=== PATIENT | male | born 1950 | race Caucasian/White ===

== ENCOUNTER 2020-05-15 08:20 | Outpatient (REF) | payer MEDICARE, SELFPAY | END 2020-05-15 08:21 | disposition home or self-care (01) | LOC: HO.MANLDS 08:20 | PROVIDERS: PCP Internal Medicine; Visit Provider Internal Medicine | DX: Z12.5 Encounter for screening for malignant neoplasm of prostate (principal); N40.1 Benign prostatic hyperplasia with lower urinary tract symptoms | CPT/HCPCS: 36415; 84153 ==

== ENCOUNTER 2021-05-19 11:17 | Outpatient (REF) | payer MEDICARE, SELFPAY ==
[2021-05-19 13:15] LABS: Prostate Specific Antigen 2.69 ng/mL (<0.05-4.0)
== END 2021-05-19 11:18 | disposition home or self-care (01) ==
LOC: HO.MANLDS 11:17
PROVIDERS: PCP Internal Medicine; Visit Provider Internal Medicine
DX: Z12.5 Encounter for screening for malignant neoplasm of prostate (principal)
CPT/HCPCS: 36415; 84153

== ENCOUNTER 2021-11-03 10:57 | Outpatient (REF) | payer MEDICARE, SELFPAY | END 2021-11-03 10:58 | disposition home or self-care (01) | LOC: HO.LNP 10:57 | PROVIDERS: Visit Provider Internal Medicine | DX: R31.9 Hematuria, unspecified (principal) | CPT/HCPCS: 87086; 87088; 87186 ==

== ENCOUNTER 2022-06-14 07:51 | Outpatient (REF) | payer MEDICARE, SELFPAY ==
[2022-06-14 11:31] LABS: MANUAL DIFF FLAG NO
[2022-06-14 11:51] LABS: Basophils Absolute Auto 0.1 X10*3/uL (0.0-0.2); Basophils Percent Auto 1.4 % (0-2); Eosinophils Absolute Auto 0.3 X10*3/uL (0.0-0.4); Eosinophils Percent Auto 5.8 % (0-4); Hematocrit 43.5 % (42.0-52.0); Hemoglobin 14.2 g/dl (14.0-18.0); Imm Gran Abs Auto 0.02 X10*3/uL (0.00-0.03); Imm Gran Pct Auto 0.4 % (0.0-0.4); Lymphocytes Percent Auto 20.4 % (20-40); Mean Corpuscular HGB Conc 32.6 g/dl (31.0-36.0); Mean Corpuscular Hemoglobin 30.7 pg (27.0-33.0); Mean Corpuscular Volume 94.2 fL (80.0-98.0); Mean Platelet Volume 9.9 fL (9.4-12.4); Monocytes Absolute Auto 0.6 X10*3/uL (0.1-1.2); Monocytes Percent Auto 12.8 % (2-11); Neutrophils Percent Auto 59.2 % (45-73); Platelet Count 347 X10*3/uL (160-400); Red Blood Count 4.62 X10*6/uL (4.60-5.80); Red Cell Distribution Width 14.1 % (11.0-16.0)
[2022-06-14 13:44] LABS: Alanine Aminotransferase 14 U/L (0-40); Alkaline Phosphatase 87 U/L (39-117); Anion Gap 13 (12-20); Aspartate Amino Transferase 17 U/L (5-37); Bilirubin Total 0.7 mg/dL (0.0-1.0); Blood Urea Nitrogen 11 mg/dL (9-16); Calcium 9.1 mg/dL (8.4-10.2); Carbon Dioxide 29 mmol/L (22-29); Chloride 104 mmol/L (96-108); Cholesterol 173 mg/dL; Estimated Glomerular Filt Rate > 60; Glucose Fasting 85 mg/dL (60-99); HDL Cholesterol 101 mg/dL; LDL Cholesterol Calculated 60 mg/dl; Potassium 4.6 mmol/L (3.3-5.1); Sodium 141 mmol/L (135-145); Total Protein 6.7 g/dL (6.5-8.0); Triglycerides 61 mg/dL
[2022-06-14 14:01] LABS: Prostate Specific Antigen 2.11 ng/mL (<0.05-4.0)
== END 2022-06-14 07:52 | disposition home or self-care (01) ==
LOC: HO.MANLDS 07:51
PROVIDERS: Visit Provider Physician Assistant
DX: I10 Essential (primary) hypertension (principal); Z12.5 Encounter for screening for malignant neoplasm of prostate
CPT/HCPCS: 36415; 80053; 80061; 84153; 85025

== ENCOUNTER 2024-08-06 07:35 | Outpatient (REF) | payer MEDICARE, SELFPAY ==
--- OUTSIDE RECORDS SUMMARY | 2024-08-06 07:40 | XMS_ITS | Data Portability ---
Author Organization [place] [facility] [employer] [facility], [facility] Address [address] [place] [id number] Assessment No assessment recorded. Plan of Treatment Reminders Order Date Submit Date Provider Last Modified By Organization Details Last Modified Time Details Appointments ULTRASOUN D 30 2025 10:30A M GP US TECH 2 Not available Not available Not available ULTRASOUN D FU 2025 11:00A M HELEN Burnett Not available Not available Not available Lab urinalysi s, dipstick, auto 2024 025 [email or web address] o1 [facility] [place], [address], [place], [address], 05/28/2024 13:04:25 Referral None recorded. Procedures bladder scan (PROC) 2024 025 [email or web address] o1 [facility] [place], [address], [place], [address], 05/28/2024 13:04:25 Surgeries None recorded. Imaging None recorded. Medication Orders None recorded. Patient TargetsNo targets recorded. Patient Instructions Encounter Date Encounter Id Patient Instructions Last Modified By Organization Details Last Modified Time 05/28/2024 [id number] continue tamsulosin daily follow up in one year [email or web address] Not available 05/28/2024 11:05:13 Reason for Referral None Reported. Results Created Date Observation Date Name Description Value Unit Range Abnormal Flag Note LastModifiedBy Organization Detail LastModifiedTime 05/29/1905/28/2024 bladd er scan (PROC ) Urine Volume 417 Not Available [facility] [place] [address], [place], [address], 05/28/2024 10:59:14 05/29/19 25 05/28/2024 urina lysis , dipst ick, auto Leukocytes Negati ve Not Available [facility] [address], [place], [address], 05/28/2024 10:56:40 05/29/19 25 05/28/2024 urina lysis , dipst ick, auto Nitrite negati ve Not Available [facility] [address], [place], [address], 05/28/2024 10:56:40 05/29/19 25 05/28/2024 urina lysis , dipst ick, auto Urobilinogen .2 Not Available [facility] [place] [address], [place], [address], 05/28/2024 10:56:40 05/29/19 25 05/28/2024 urina lysis , dipst ick, auto Protein Negati ve Not Available [facility] [address], [place], [address], 05/28/2024 10:56:40 05/29/19 25 05/28/2024 urina lysis , dipst ick, auto pH 6.5 Not Available [facility] [address], [place], [address], 05/28/2024 10:56:40 05/29/19 25 05/28/2024 urina lysis , dipst ick, auto Blood Negati ve Not Available [facility] [address], [place], [address], 05/28/2024 10:56:40 05/29/19 25 05/28/2024 urina lysis , dipst ick, auto Specific [place] 1.015 Not Available [facility] [address], [place], [address], 05/28/2024 10:56:40 05/29/19 25 05/28/2024 urina lysis , dipst ick, auto Ketone Negati ve Not Available [facility] [address], [place], [address], 05/28/2024 10:56:40 05/29/19 25 05/28/2024 urina lysis , dipst ick, auto Bilirubin Negati ve Not Available [facility] [address], [place], [address], 05/28/2024 10:56:40 05/29/19 25 05/28/2024 urina lysis , dipst ick, auto Glucose Negati ve Not Available [facility] [address], [place], [address], 05/28/2024 10:56:40 Result Notes None recorded. Problems Name Problem SNOMED Code Status Onset Date Resolution Date Notes Provider Name and Address Organization Details Recorded Time Incomplete emptying of urinary bladder 133832199 Active 2024 MARIFER enrique, [employer] 5 11:00:02 Benign prostatic hyperplasia with outflow obstruction 426965423 Active 2024 Hortencia stephen APRN [address] [place], [address], [employer] [facility] 5 17:11:31 Problem Notes None recorded. Medical Equipment None Reported. Medications Name Sig Start Date Stop Date Status Note LastModified by Organization Details LastModified Time cephalexin 500 mg capsule Take 1 capsule (500 mg total) by mouth 3 (three) times a day for 3 days. Please begin to take the day before Urolift procedure 11/27 completed Not Available Not Available Not Available oxybutynin chloride 5 mg tablet Take 1 tablet (5 mg total) by mouth 3 (three) times a day as needed. Please begin to take only after Urolift procedure 01/12 completed Not Available Not Available Not Available nitrofurant oin monohydrate /macrocryst als 100 mg capsule Take 1 capsule (100 mg total) by mouth 2 (two) times a day for 7 days. 11/16 completed Not Available Not Available Not Available Vitals None Recorded Social History None recorded. Functional Status None recorded. Mental Status None recorded. Family History Nothing Reported. Medical History No medical history recorded. Past Encounters Encounter ID Performer Location Encounter Start Date Encounter Closed Date Diagnosis/Indication Diagnosis SNOMED-CT Code Diagnosis ICD10 Code Diagnosis Note [id number] Hortencia He APRN [facility] [place] [address] [place] [address] 05/28/2024 10:31:10 05/28/2024 11:09:17 Incomplete emptying of urinary bladder 274383795 R33.9 I discussed with pt the potential consequenc es of increasing PVRs including CKD.Pt wishes to continue tamsulosin daily. Pt agrees to RBUS next year.follo w up in one year with RBUS Benign pro static hyperplasia with outflow obstruction 364465636 N40.1 N13.8 as above Health Concerns Section Related Observation LastModified by Organization Detai ls LastModified Time None Recorded Concern Status LastModified by Organization Details LastModified Time None Recorded Advance Directives Directive None Recorded Payers Insurance Date Sequence Insurance Name Policy Number Policy Elena Covered Member ID Elena Member ID Guarantor Name 05/26/2024 1 MEDICARE B-CT: NGS Von Bedoya [id number] Von Bedoya 06/03/2024 2 BCBS-ID: [facility] [id number] Von Bedoya [id number] Von Bedoya Notes Date Note Type Note Provider Name and Address Organization Details Recorded Time 05/28/2024 text/html Von Bedoya is a 72 y.o. male with h/o ED and BPH with LUTS s/p urolift 11/29/21. He presents today for follow up. Pt states he is doing well. He remains on tamsulosin daily. His PVR is 417ml. He states he has no urinary issues. He loves what the urolift has done for his urinary symtpoms. He does not want to go back to [facility]. AUA-SS =5 ; QOL =? ? ?0 ? ? ?(See scanned sheet for complete scoring breakdown)PVR by bladder scan =417 mLSHIM =14UA =? ? ?Negative for hematuria or signs of infection.? ? ? Evaluation and management visit today is associated with current or anticipated ongoing medical care services related to a patient? s single serious condition or a complex condition. 09/23/21 UDS - Capacious urinary reservoir. Sensation is significantly delayed with rapid sensory progression. Voiding does occur with a well-coordinated detrusor contraction with a large volume PVR. Mild EMG activation during initiation of void phase, possible dysfunctional voiding component.? ? ?10/06/21 TRUS - Volume 46.85 mL 10/06/21 cystoscopy - This revealed unremarkable urethra without obvious stricture; enlarged prostate with obstructing lateral lobes, no median lobe; grossly trabeculate bladder mucosa with multiple shallow diverticula; bialteral ureteral orifices not visualized. Hortencia He, CONTENT MANAGER [address] [facility] [place], [address], [place] [facility] [employer] 05/31/2024 17:13:32
--- OUTSIDE RECORDS SUMMARY | 2024-08-06 07:40 | XMS_ITS | Data Portability ---
Author Organization [facility], , [facility] Address [address] [place] [address] Care Team Providers Care Third Loader Name Role Phone BRIANA RICHARDSON Primary Care Provider [phone] SHERRIE BOONE Medical Historian Assessment Encounter Date Assessment Date Assessment LastModified by Organization Details LastModified Time 05/07/2013 05/07/2013 Von referred for fabrication of bilateral thumb CMC splints.? ? ? Also given information on alternative splints--Comfort Cool and Metagrip--as well as alternative bike internal communications writer.? ? ? Follow-up only if splint modifications are needed. abynum Not available 05/07/2013 21:11:56 Plan of Treatment Reminders Order Date Submit Date Provider Last Modified By Organization Details Last Modified Time Details Appointments None recorded. Lab None recorded. Referral hand therapy referral - bilat DJD thumb CMC. Please eval and treat; functional splinting. 2013 014 [email or web address] Not available 4 07:31:43 Procedures None recorded. Surgeries None recorded. Imaging x-ray, shoulder - bilat shoulder pain. No trauma. 2013 014 [facility] (Imaging), [address], [place], [address], 4 14:17:04 Medication Orders Voltaren 1 % topical gel 2013 014 INTERFACE Not available 4 09:50:29 Patient TargetsNo targets recorded. Patient InstructionsNo instructions recorded. Reason for Referral bilat DJD thumb CMC. Please eval and treat; functional splinting. Referring Physician: Sherrie Boone, Rheumatology, Encounter Date: 04/29/2013 Results Created Date Observation Date Name Description Value Unit Range Abnormal Flag Note LastModifiedBy Organization Detail LastModifiedTime 05/03/19 14 05/03/2013 shoul edyta OBSERV ATION: BILATE RAL SHOULD ERS, 4 VIEWS EACH HISTOR Y: Bilate ral should er pain. No histor y of trauma . PRIOR: Refere nce is made to report from outsid e right should er plain films perfor med 2007. FINDIN GS: Hypert rophic change s are seen in the bilate ral acromi oclavi cular joints . There is a faint soft tissue calcif icatio n superi or to the left acromi oclavi cular joint. There is mild spurri ng at the margin s of the bilate ral glenoi d proces ses. No fractu re or malali gnment seen. IMPRES ELLA: Bilate ral acromi oclavi cular and glenoi d osteoa rthrit is. Possib le left bursit is. Electr onical ly signed Dieudonne shanks Physic melia: Berny Nunez MD [facility] (Imaging) [address] , [place], [address], 02/25/2015 04:00:17 Result Notes None recorded. Problems Name Problem SNOMED Code Status Onset Date Resolution Date Notes Provider Name and Address Organization Details Recorded Time Pain of multiple joints 94221191 Active Sherrie Boone MD [address] [place] [address], [address] , [facility] 4 08:51:12 Pain of shoulder region 46537491 Active Sherrie Boone MD [address] [place] [address], [address] , [facility] 4 10:19:10 Problem Notes None recorded. Procedures Surgical History Date Name Laterality Status Provider Name and Address Organization Details Recorded Time 4 Shoulder (Right) Injection completed Sherrie Boone MD [address] [place] [address], [address], [facility] 05/04/2013 10:16:50 4 Shoulder (Left) Injection completed Sherrie Boone MD [address] [place] [address], [address], [facility] 05/04/2013 10:16:50 Arthroscopy completed Sherrie Boone MD [address] [place] [address], [address], [facility] 05/03/2013 08:40:59 Imaging Results Imaging Date Name Status LastModified by Organiz ation Details LastModified Time 05/03/2013 shoulder completed [facility] (Imaging) [address] , [place], [address], 02/25/2015 04:00:17 Procedure Notes None recorded. Medical Equipment None Reported. Allergies No known drug allergies Medications Name Sig Start Date Stop Date Status Note LastModified by Organization Details LastModified Time valsartan 160 mg-hydrochlorot hiazide 12.5 mg tablet TAKE 1 TABLET BY MOUTH EVERY DAY active Not Available Not Available No t Available hydrochlorothia zide 25 mg tablet Take 1 tablet every day by oral route. active Not Available Not Available No t Available Voltaren 1 % topical gel Apply 1 g 4 times a day by topical route. 2013 active Not Available Not Available Not Avai lable Vitals Date Recorded Body weight Body height Heart rate Body mass index (BMI) Systolic blood pressure Diastolic blood pressure Provider Name and Address Organization Details Last Updated DateTime 4 63204.3 3342 g 172.72 cm 72 /min 25.2 kg/m2 124 mm[Hg] 64 mm[Hg] Marli Gonsalse LPN [facility] 4 08:56:35 Date Recorded Body weight Heart rate Systolic blood pressure Diastolic blood pressure Provider Name and Address Organization Details Last Updated DateTime 05/03/2013 99030.333 42 g 70 /min 132 mm[Hg] 90 mm[Hg] Kimi Fuller LPN [facility] 05/03/2013 14:13:43 Social History Question Answer Notes LastModified by Organizat ion Details LastModified Time Tobacco Smoking Status Never [facility]oker [facility] 04/29/2013 08:56:35 How Much Tobacco Do You Chew? None [email or web address] Information not available 04/29/2013 Marital Status Informatio n not available 05/03/2013 Sex: Unknown Functional Status Question Answer Note LastModified by Organizat ion Details LastModified Time What is your level of alcohol consumption? 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 Family History Relationship Description Onset Age of this Age Resolved Age Notes LastModified by Organization Details LastModified Time Father Congestive heart failure Not available 2013 08:40:59 Notes:No inflam arthritis Medical History Condition Response Osteoarthritis Y Lyme Disease Y Hypertension Y Past Encounters Encounter ID Performer Location Encounter Start Date Encounter Closed Date Diagnosis/Indication Diagnosis SNOMED-CT Code Diagnosis ICD10 Code Diagnosis Note [id number] Sherrie Boone MD Rheumatol [address] [address] 04/29/2013 08:16:57 04/29/2013 09:52:25 Pain of multiple joints 43670798 Degenerati ve arthritis at several sites. I do not see any signs of an underlying inflammato ry condition. Discussed degenertiv e/osteoart hritis, limited theraputic options. Can try nutritiona l supplement s. ? SAMe. Takes fish oil. Discussed topical Voltaren that might be of some benefit for thumbs. Also splinting may be helpful, particular ly with certain activities . Will refer to Hand Therapy. Shoulder exam consistent with some inpingemen t syndrome, but may be significan t component of glenohumer al DJD. Check x ray, return for injection. L knee DJD by hx, but only mildly smptomatic . No specific treatment today. [id number] Sherrie Boone MD Rheumatol [address] [address] 05/03/2013 13:18:42 05/06/2013 09:57:21 Pain of shoulder region 31291358 Bilateral shoulder pain, symptoms and findings suggesting some component of rotator cuff tendinitis . He had x-rays today and I reviewed these films with him. There is some degenerati ve arthritis at the a.c. joints. He has a mild degree of degenerati ve arthritis seen at the glenohumer al joint which appears little worse on the right compared to the left. There was some soft tissue calcificat ion on the left suggesting tendinitis . Is a little difficult to say how much of his symptoms related to rotator cuff impingemen t/inflamma tion versus pain related to degenerati ve arthritis of the glenohumer al joint. I suspect a significan t degree of this is rotator cuff in origin. We will proceed with bilateral injection into the subacromia l space. If he fails to see much improvemen t from the injections , then I suggested he might want to be seen by an orthopedis t. Intra-chichi cular injection might be warranted. [id number] Melina Mcdonald, OT Physical Therapy, [address] [address] 05/07/2013 15:09:01 05/08/2013 07:30:22 Osteoarthritis of joint of hand 94260367 Health Concerns Section Related Observation LastModified by Organization Detai ls LastModified Time None Recorded Concern Status LastModified by Organization Details LastModified Time None Recorded Advance Directives Directive None Recorded Payers Encounter Date Sequence Insurance Name Policy Number Policy Elena Covered Member ID Elena Member ID Guarantor Name 04/29/2013 1 [facility] ([place] [id number] Von Bedoya [id number] Von Bedoya 05/03/2013 1 [facility] ([place]) [id number] Von Bedoya [id number] Von Bedoya 05/07/2013 1 [facility] ([place]) [id number] Von Bedoya [id number] Von Bedoya Notes Date Note Type Note Provider Name and Address Organization Details Recorded Time 04/29/2013 text/html This is a 62 yea r old man followed by Dr Richardson. He is being seen with MSK pains at a number of sites. He does have several orthopedic issues including known DJD of the CMC joints evaluated by noelle 7 yrs ago with local injection. 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 Today his chief complaints are of bilat shoulder pain, bilat basilar thumb pain and some ongoing knee sx's. Shoulders bothersome for past 3-4 years, getting worse. He had PT reatments in past. Nocturnal sx's and pain with certain movements. No discrete injury. Thumbs bothersome all the time with grasping. No specific AM stiffness involving these or other joiints. Knees painful, worse weight bearing. No locking or buckling sx's. Sherrie Boone MD [address] [place] [address], [address], [facility] 05/03/2013 08:51:31 05/03/2013 text/html Here today as planned for shoulder x-rays and possible injection. For recent consultation, see 04/29/13 note. Ongoing bilateral shoulder symptoms, unchanged from last visit. Sherrie Boone MD [address] [place] [address], [address], [facility] 05/04/2013 10:17:04 05/07/2013 text/html Bilateral thumb CMC DJD, started 2-3 years ago on the right and now also in the left. Cortisone shot to the right thumb CMC a few years ago. Right dominant. Work--woods laborer Melina Mcdonald, OT [address] [place], [address], [facility] 05/07/2013 21:12:21
--- OUTSIDE RECORDS SUMMARY | 2024-08-06 07:40 | XMS_ITS | Clinical Summary ---
Author Organization [facility] Address [address] [place] [address] Care Team Providers Care Pharmacy Analyst Name Role Phone Avelino Moreno DO Primary Care Provider [phone] Social History Tobacco Use Types Packs/Day Years Used Date Smoking Tobacco: Never Assessed Sex and Gender Information Value Date Recorded Sex Assigned at Not on file Gender Identity Not on file Sexual Orientation Not on file Job Start Date Occupation Industry Not on file Not on file Not on file Last Filed Vital Signs Vital Sign Reading Time Taken Comments Blood Pressure 140/79 01/12/2022 10:13 AM EDT Pulse 80 01/12/2022 10:13 AM EDT Temperature 35.8 ??C (96.5 ??F) 09/23/2021 2:38 PM ED T Respiratory Rate - - Oxygen Saturation 98% 01/12/2022 10:13 AM EDT Inhaled Oxygen Concentration - - Weight - - Height - - Body Mass Index - - Plan of Treatment Health Maintenance Due Date Last Done Comments Hepatitis C Screening 1950 COVID-19 Vaccine (#1) [birth year]04/1951 Depression Screening 1963 Preventative Health Evaluation 11/01/1969 Colon Cancer Screening (Colonoscopy) 11/01/1996 Fall Risk Assessment 11/01/2016 Shingrix-Zoster Vaccine (2 of 2) 02/04/2019 12/10/2018 Pneumococcal Vaccine (2 of 2 - PCV) 12/11/2019 12/10/2018 Influenza Vaccine (#1) 2023 1, 12/12/2019, 02/05/2019, Additional history exists RSV Adult > 60+ Yrs or (1 - 1-dose 75+ series) 11/01/2026 DTap / Tdap / Td (2 - Td or Tdap) 08/10/2030 08/10/2020 Hepatitis B Vaccines Aged Out No long er eligible based on patient's age to complete this topic RSV Ped < 20 months Aged Out No longe r eligible based on patient's age to complete this topic Care Teams Pharmacy Analyst Relationship Specialty Start Date End Date Avelino Moreno DO [address] [facility] [place] [address] PCP - General Internal Medicine 08/17/21
--- OUTSIDE RECORDS SUMMARY | 2024-08-06 07:40 | XMS_ITS | Data Portability ---
Author Organization [facility], Home Service Address [address] [facility] [place] [address] Assessment Encounter Date Assessment Date Assessment LastModified by Organization Details LastModified Time 05/18/2022 05/18/2022 The patient denies recent falls or recurrent falls. Denies instability, weakness, abnormal gait, or difficulties with movement. The patient wears correct, supportive shoes and is not otherwise severely visually impaired. The patient is full weight bearing and if using the assistance of a cane or walker feels supported and stable with the use of such devices. All medical conditions have been taken into account that may pose a risk for the patient for falls. Home janine, carpets and/or rugs do not pose a challenge for the patient. The patient has been educated about the use of vitamin D supplementation for bone health and prevention of hypotensive episodes that may increase risk for fall. All question and concerns were answered to the patient's satisfaction. [email or web address] Not available 05/18/2022 15:35:42 Plan of Treatment Reminders Order Date Submit Date Provider Last Modified By Organization Details Last Modified Time Details Appointments ANNUAL EXAM 2024 11:30A M DR RICHARDSON Not available Not available Not available Lab lipid panel, serum 2023 024 [facility], [address] [place] [address], [place], [id number], 08/16/2023 12:25:07 CMP, serum or plasma 2023 024 [facility], [address] [place] [address], [place], [id number], 08/16/2023 12:25:07 CBC 2023 024 [facility], [address] [place] [address], [id number], 08/16/2023 12:25:07 PSA, serum or plasma 2023 024 [facility], [address] [place] [address], [id number], 08/16/2023 12:25:07 vitamin D, 25-hydrox y, total, serum 2023 024 [facility], [address] [place] [address], [id number], 08/16/2023 12:25:47 vitamin B12, serum 2023 024 [facility], [address] [place] [address], [id number], 08/16/2023 12:25:47 CMP, serum or plasma 2022 023 [facility], [address] [place] [address], [id number], 06/15/2022 11:38:15 CBC w/ auto diff 2022 023 [facility], [address] [place] [address], [id number], 06/15/2022 11:38:15 PSA, serum or plasma 2022 023 [facility], [address] [place] [address], [id number], 06/08/2022 11:35:21 lipid panel, blood 2022 023 [facility], [address] [place] [address], [id number], 06/15/2022 11:38:15 Referral None recorded. Procedures None recorded. Surgeries None recorded. Imaging None recorded. Medication Orders baclofen 10 mg tablet 2021 022 [email or web address] Not available 06/08/2022 11:10:29 meloxicam 15 mg tablet 2021 022 [email or web address] Not available 06/08/2022 11:10:50 fluoxetin e 10 mg tablet 2021 022 [email or web address] Not available 10/04/2021 09:30:36 Patient TargetsNo targets recorded. Patient Instructions Encounter Date Encounter Id Patient Instructions Last Modified By Organization Details Last Modified Time 05/18/2022 [id number] fall risk screening* [email or web address] Not available 05/18/2022 15:31:12 Reason for Referral None Reported. Results Created Date Observation Date Name Description Value Unit Range Abnormal Flag Note LastModifiedBy Organization Detail LastModifiedTime Result Notes None recorded. Problems Name Problem SNOMED Code Status Onset Date Resolution Date Notes Provider Name and Address Organization Details Recorded Time Osteoarthr itis 798518789 Active 2017 knees, ankle, hands, toes Not Available [facility] 2 13:05:30 Sigmoidore ctal intussusce ption 03256184 Active 2017 2004 Not Available [facility] 2 13:05:30 Benign prostatic hyperplasi a 167146417 Active 2017 Not Available [facility] 2 13:05:30 Polyp of gallbladde r 789014595 Active 2017 Not Available [facility] 2 13:05:30 Essential hypertensi on 28919833 Active 2017 Not Available [facility] 2 13:05:30 Acute non-ST segment elevation myocardial infarction 277666950 Active 2017 Not Available [facility] 2 13:05:30 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 704111702 Active [address]Y [address] [place] [address], [address], [facility] 2 11:20:12 Anxiety 35216566 Active 2021 DAISY ANTHONY [address] [place], [address], [facility] 2 11:21:41 Acute urinary tract infection 844452763 Active 2021 Avelino Richardson DO [address] [place], [address], [facility] 2 15:42:10 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 Medical Equipment None Reported. Allergies No known drug allergies Medications Name Sig Start Date Stop Date Status Note LastModified by Organization Details LastModified Time celecoxib 200 mg capsule TAKE 1 CAPSULE BY MOUTH EVERY DAY MEDICATIO N TO BE STARTED AFTER SURGERY 05/18 completed Not Available Not Available Not Available cyclobenzap rine 10 mg tablet TAKE 1 TABLET BY MOUTH EVERY 8 HOURS FOR 7 DAYS 05/18 completed Not Available Not Available Not Available atorvastati n 80 mg tablet TAKE 1 TABLET ONCE DAILY 2024 active Not Available Not Available Not Avai lable doxycycline hyclate 100 mg capsule TAKE 1 CAPSULE BY MOUTH TWO TIMES A DAY FOR 10 DAYS 08/15 completed Not Available Not Available Not Available ibuprofen 800 mg tablet 09/27 completed Not Available Not Available Not Available meloxicam 15 mg tablet TAKE 1 TABLET BY MOUTH EVERY DAY WITH A MEAL 06/08 completed Not Available Not Available Not Available fluoxetine 10 mg tablet TAKE 1 TABLET BY MOUTH EVERY DAY 10/04 completed Not Available Not Available Not Available valsartan 160 mg-hydrochl orothiazide 12.5 mg tablet take 1 tablet by mouth once a day active Not Available Not Available No t Available Aspir-Low 81 mg tablet,rachel yed release Take 1 tablet every day by oral route. active Not Available Not Available No t Available tramadol 50 mg tablet TAKE 1 TO 2 TABLETS BY MOUTH EVERY 6 HOURS NEEDED FOR MILD PAIN. DO NOT EXCEED 8 TABLETS (400MG) PER DAY. 08/15 completed Not Available Not Available Not Available sildenafil 100 mg tablet TAKE 1 TABLET BY MOUTH ONCE DAILY 06/08 completed Not Available Not Available Not Available aspirin 325 mg tablet,rachel yed release TAKE 1 TABLET BY MOUTH TWICE A DAY FOR 30 DAYS ONLY. MEDICATIO N TO BE STARTED AFTER SURGERY 05/18 completed Not Available Not Available Not Available tamsulosin 0.4 mg capsule TAKE 2 CAPSULES BY MOUTH AT BEDTIME 2024 active Not Available Not Available Not Avai lable baclofen 10 mg tablet TAKE 1 TO 2 TABLETS BY MOUTH AT NIGHT NEEDED 06/08 completed Not Available Not Available Not Available cephalexin 500 mg capsule TAKE 1 CAPSULE BY MOUTH THREE TIMES DAILY 05/18 completed Not Available Not Available Not Available pantoprazol e 40 mg tablet,rachel yed release TAKE 1 TABLET BY MOUTH EVERY DAY 08/15 completed Not Available Not Available Not Available erythromyci n 5 mg/gram (0.5 %) eye ointment APPLY 1/2 INCH IN LEFT EYE FOUR TIMES DAILY FOR 5 DAYS 09/27 completed Not Available Not Available Not Available Cipro 500 mg tablet Take 1 tablet every 12 hours by oral route for 10 days. 01/05 completed Not Available Not Available Not Available fluoxetine 10 mg capsule TAKE 1 CAPSULE BY MOUTH EVERY DAY 10/19 completed Not Available Not Available Not Available nitroglycer in 0.4 mg sublingual tablet 06/08 completed Not Available Not Available Not Available docusate sodium 100 mg capsule TAKE ONE CAPSULE BY MOUTH TWICE DAILY MEDICATIO N TO BE STARTED AFTER SURGERY 05/18 completed Not Available Not Available Not Available amoxicillin 250 mg capsule TAKE 1 CAPSULE BY MOUTH EVERY 8 HOURS FOR 7 DAYS 09/27 completed Not Available Not Available Not Available lorazepam 1 mg tablet TAKE 1 TABLET BY MOUTH THE NIGHT BEFORE THE APPOINTME NT AND 1 TABLET 2 HOURS PRIOR TO THE APPOINTME NT 09/27 completed Not Available Not Available Not Available oxybutynin chloride 5 mg tablet 06/08 completed Not Available Not Available Not Available fluoxetine 20 mg capsule TAKE 1 CAPSULE BY MOUTH EVERY DAY 2024 active Not Available Not Available Not Avai lable doxycycline hyclate 100 mg tablet Take 1 tablet twice a day by oral route for 10 days. 05/18 completed Not Available Not Available Not Available oxycodone 5 mg tablet TAKE 1 TO 2 TABLETS BY MOUTH EVERY 4 HOURS NEEDED FOR SEVERE PAIN 05/18 completed Not Available Not Available Not Available metoprolol tartrate 25 mg tablet TAKE 1 TABLET TWICE A DAY 2023 active Not Available Not Available Not Avai lable oxycodone 10 mg tablet TAKE 1/2 TO 1 TABLET BY MOUTH EVERY 4 HOURS NEEDED FOR SEVERE PAIN 08/15 completed Not Available Not Available Not Available Brilinta 90 mg tablet Take 1 tablet twice a day by oral route. 08/29 completed Not Available Not Available Not Available Shingrix (PF) 50 mcg/0.5 mL intramuscul ar suspension, kit 05/18 completed Not Available Not Available Not Available Fluzone High-Dose 3953-2023 (PF) 180 mcg/0.5 mL intramuscul ar syringe 02/05 completed Not Available Not Available Not Available Vitals Date Recorded Body height Body mass index (BMI) Body weight Oxygen saturation Oxygen saturation in Arterial blood by Pulse oximetry Heart rate Systolic blood pressure Diastolic blood pressure Provider Name and Address Organization Details Last Updated DateTime 2 172.09 cm 25.6 kg/m2 60459 g 99 % 99 % 69 /min 140 mm[Hg] 78 mm[Hg] Corinna Raymond [facility] 2 11:02:41 Date Recorded Body height Heart rate Oxygen saturation Oxygen saturation in Arterial blood by Pulse oximetry Systolic blood pressure Diastolic blood pressure Provider Name and Address Organization Details Last Updated DateTime 3 172.09 cm 73 /min 96 % 96 % 140 mm[Hg] 70 mm[Hg] Zahida Cohen [facility] 3 15:10:01 Date Recorded Body height Body mass index (BMI) Body weight Heart rate Oxygen saturation Oxygen saturation in Arterial blood by Pulse oximetry Systolic blood pressure Diastolic blood pressure Provider Name and Address Organization Details Last Updated DateTime 3 172.09 cm 28 kg/m2 31058.4 g 63 /min 98 % 98 % 150 mm[Hg] 78 mm[Hg] Jazlyn Sims [facility] 3 11:13:21 Date Recorded Body height Body mass index (BMI) Body weight Heart rate Oxygen saturation Oxygen saturation in Arterial blood by Pulse oximetry Systolic blood pressure Diastolic blood pressure Provider Name and Address Organization Details Last Updated DateTime 3 172.09 cm 27.8 kg/m2 00409.7 3 g 59 /min 98 % 98 % 144 mm[Hg] 80 mm[Hg] Avelino Richardson, DO [address] [place], [address], [facility] 3 14:15:23 Date Recorded Body height Body mass index (BMI) Body weight Heart rate Respiratory rate Oxygen saturation Oxygen saturation in Arterial blood by Pulse oximetry Systolic blood pressure Diastolic blood pressure Provider Name and Address Organization Details Last Updated DateTime 4 172.72 cm 31.2 kg/m2 31178.2 3 g 54 /min 18 /min 97 % 97 % 118 mm[Hg] 78 mm[Hg] Marcel Haley [facility] 4 11:55:41 Social History Question Answer Notes LastModified by Organizat ion Details LastModified Time Tobacco Smoking Status Never Smoker Not Available [facility] 01/21/2020 03:36:24 What Was The Date Of Your Most Recent Tobacco Screening? 08/16/2023 [email or web address] Information not available 08/16/2023 Sex: Unknown Functional Status Question Answer Note LastModified by Organization D etails LastModified Time Do you or have you ever used any other forms of tobacco or nicotine? No [email or web address] Information not available 06/08/2022 Mental Status None recorded. Family History Nothing Reported. Medical History No medical history recorded. Immunizations Vaccine Type Date Status Note Provider Nam e and Address Organization Details Recorded Time Influenza, split virus, quadrivalent, preservative 1 completed Gail enrique, [facility] 05/25/2021 14:18:44 COVID-19, mRNA, LNP-S, PF, 100 mcg/0.5mL dose or 50 mcg/0.25mL dose 1 completed Gail enrique [facility] 05/25/2021 14:19:03 COVID-19, mRNA, LNP-S, PF, 100 mcg/0.5mL dose or 50 mcg/0.25mL dose 1 completed Gail enrique [facility] 05/25/2021 14:19:08 COVID-19, mRNA, LNP-S, PF, 100 mcg/0.5mL dose or 50 mcg/0.25mL dose 1 completed Gail enrique [facility] 05/25/2021 14:19:13 COVID-19, mRNA, LNP-S, PF, 100 mcg/0.5mL dose or 50 mcg/0.25mL dose 2 [facility] 13:33:13 zoster live 2 [facility]2019 11:44:47 Influenza, split virus, quadrivalent, preservative 8 [facility] 11:44:47 COVID-19, mRNA, LNP-S, PF, 50 mcg/0.5 mL dose 2 completed Corinna enrique [facility] 05/18/2022 08:30:40 influenza, unspecified formulation 2 [facility]/18[facility]2022 08:30:55 zoster live 9 completed Marisol enrique [facility] 10/23/2019 11:44:47 pneumococcal polysaccharide PPV23 9 completed Marisol enrique [facility] 10/23/2019 11:44:47 zoster live 9 completed Marisol enrique [facility] 10/23/2019 11:44:47 Influenza, split virus, quadrivalent, preservative 9 [facility] 10/23/2019 11:44:47 Influenza, split virus, quadrivalent, preservative 0 completed Dolores Martinez [facility] 12/13/2019 14:01:06 Tdap 1 completed Gail Vanegas [facility] 08/11/2020 13:33:38 Past Encounters Encounter ID Performer Location Encounter Start Date Encounter Closed Date Diagnosis/Indication Diagnosis SNOMED-CT Code Diagnosis ICD10 Code Diagnosis Note [id number] Avelino Massiel Richardson [facility] [address],[place] [address] 06/28/2017 15:37:31 06/28/2017 16:22:52 Essential hypertension 51818715 I10 excellent bp Eczema 34174582 L30.9 will use otc hydrocort 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 04 M94.0 [id number] Avelino Richardson [facility] [address],[place] [address] 08/29/2017 10:38:36 08/29/2017 11:58:41 Essential hypertension 61799530 I10 stable Benign pro static hyperplasia 643035950 N40.1 Acute urin zoe tract infection 643588884 N39.0 [id number] Avelino Richardson [facility] [address],[place] [address] 01/05/2018 16:04:34 01/05/2018 17:05:40 Essential hypertension 75161368 I10 excellent bp Acute non- ST segment elevation myocardial infarction 241926749 I21.4 asymptomat ic no cp no sob Osteoarthritis 220377412 M19.90 knees are bad is still deciding about whether to have ortho involved [id number] Avelino Richardson [facility] [address] [place] [address],[place] [address] 07/16/2018 14:10:17 07/16/2018 16:14:14 Essential hypertension 52764571 I10 excellent bp is not having any major problems Acute non- ST segment elevation myocardial infarction 735041833 I21.4 asymptomat ic no cp no sob no evidence of recurrent ds [id number] Avelino Richardson [facility] [address] [facility],[place] [address] 02/05/2019 13:21:35 02/05/2019 13:54:54 Essential hypertension 53377133 I10 excellent bp is not having any major problems will wait and see how his bps are doing at home and will let us knoe in two weeks Osteoarthritis 558626956 M19.90 knees are bad is still deciding about whether to have ortho involved left knee is worse has been scheduled to go for the knee replacemen t last year but had stent placed is still delaying however Acute non- ST segment elevation myocardial infarction 247351459 I21.4 asymptomat ic no cp no sob no evidence of recurrent ds is now thinking about the knee replacemen t surg Synovial c yst of left knee 5589969161 82711 M71.22 will refer to ortho [id number] Avelino Richardson [facility] [address] [facility] [facility] [place] [address] 10/23/2019 11:43:09 10/23/2019 13:32:12 Benign prostatic hyperplasia 588854127 N40.1 will consider looking into this as a poss alternativ e with the wire hooks etc Essential hypertension 37675432 I10 excellent bp is not having any major problems will wait and see how his bps are doing at home and will let us knoe in two weeks Acute non- ST segment elevation myocardial infarction 433834947 I21.4 asymptomat ic no cp no sob no evidence of recurrent ds is now thinking about the knee replacemen t surg Primary er ectile dysfunction 840846732 N52.9 here and long discussion re this and [id number] Avelino Richardson [facility] [address] [facility],[place] [address] 05/18/2020 13:23:43 05/18/2020 14:51:54 Active or passive immunization 845592585 Z23 will get his tdap and covid is scheduled Adult heal th examination 507466513 Z00.00 doing well overall no new issues only thing is his knees which have been an issue for years Essential hypertension 09996065 I10 excellent bp is not having any major problems will wait and see how his bps are doing at home and will let us know in two weeks Screening colonoscopy 44 8534129 Z12.11 [id number] Avelino Richardson [facility] [address] [facility],[place] [address] 05/25/2021 08:57:08 05/25/2021 11:03:29 Active or passive immunization 100977076 Z23 will get his tdap and covid is scheduled Adult [facility] th examination 103260455 Z00.01 doing well overall no new issues only thing is his knees which have been an issue for years Acute non- ST segment elevation myocardial infarction 974740135 I21.4 asymptomat ic no cp no sob no evidence of recurrent ds is now thinking about the knee replacemen t surg [id number] Avelino Richardson [facility] [address] [facility],[place] [address] 09/07/2021 09:00:11 09/10/2021 09:06:40 Essential hypertension 58592179 I10 excellent bp is not having any major problems will wait and see how his bps are doing at home and will let us know in two weeks Benign pro static hyperplasia 800385591 N40.1 will consider looking into this as a poss alternativ e with the wire hooks etc [id number] Avelino Richardson [facility] [address] [facility],[place] [address] 09/27/2021 10:54:37 09/27/2021 15:30:48 Temporomandibular kfuli-jkdf-cjqjvifpuv n syndrome 302856032 M26.621 will trial baclofen and prozac Anxiety 73000201 F41.1 will fu with a few weeks and see if it helps [id number] Avelino Richardson [facility] [address] [place] [address],[place] [address] 05/18/2022 14:52:15 05/18/2022 16:36:13 Infection of total knee joint prosthesis 265500490 T84.59XA started on two abx as a precaution Hematoma of lower leg 44 0205991 S80.12XA will monitordis cussed [id number] Avelino BaileyDevante Richardson [facility] [address] [facility],[place] [address] 06/08/2022 11:06:01 06/08/2022 11:35:24 Essential hypertension 45157950 I10 needs BW prior to annual appt with MB Infection of total knee joint prosthesis 342208340 T84.59XA resolved Acute non- ST segment elevation myocardial infarction 762409376 I21.4 stable [id number] Avelino Rankin Tiffanie [facility] [address] [facility] [address] [place] [address] 06/21/2022 14:10:25 06/21/2022 15:02:10 Essential hypertension 03406466 I10 excellent bp is not having any major problems will wait and see how his bps are doing at home and will let us know in two weeks Active or passive immunization 639018099 Z23 will get his tdap and covid is scheduled Adult heal th examination 298476152 Z00.01 doing well overall no new issues only thing is his knees which have been an issue for yearshad a uro lift procedure for his prostate and is doing fantastic Screening for malignant neoplasm of colon 077521005 Z12.11 done less 5 yr ago [id number] Avelino BaileyDevante Richardson [facility] [address] [facility] [place] [address] 08/16/2023 11:43:37 08/16/2023 14:38:41 Active or passive immunization 292740491 Z23 will get his tdap and covid is scheduled Adult heal th examination 295964189 Z00.00 doing well overall no new issues only thing is his knees which have been an issue for yearshad a uro lift procedure for his prostate and is doing fantastic Depression screening 171 450559 Z13.31 utd Acute non- ST segment elevation myocardial infarction 584468307 I21.4 asymptomat ic no cp no sob no evidence of recurrent ds is now thinking about the knee replacemen t surg Essential hypertension 62981052 I10 excellent bp is not having any major problems will wait and see how his bps are doing at home and will let us know in two weeks Health Concerns Section Related Observation LastModified by Organization Detai ls LastModified Time None Recorded Concern Status LastModified by Organization Details LastModified Time None Recorded Advance Directives Directive None Recorded Payers Encounter Date Sequence Insurance Name Policy Number Policy Elena Covered Member ID Elena Member ID Guarantor Name 09/27/2021 1 [place] [employer] [place] Von Bedoya [id number] Von Bedoya 09/27/2021 2 [place] [id number] Von Rosagalo [id number] Von Bedoya 05/18/2022 1 [place] Von Bedoya [id number] Von [place] 05/18/2022 2 [place] [id number] Von Rosagalo [id number] [place] 06/08/2022 1 [place] Von Bedoya [id number] 06 Von [place]hea 06/08/2022 2 [place] [id number] Von Rosagalo [id number] Von [place] 06/21/2022 1 [place] Von Bedoya [id number] 06 [place] 06/21/2022 2 [place] [id number] Von Rosagalo [id number] Von [place] 08/16/2023 1 [place] Von Bedoya [id number] 06 [place] 08/16/2023 2 [place] [id number] Von Rosagalo [id number] [place] Notes Date Note Type Note Provider Name a nd Address Organization Details Recorded Time 2 text/html c/o anxiety and TMJ TMJ: 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, the patient reports that he recently had a tooth pulled which exacerbated the TMJhas only had a aquatics lifeguard used before for a few yearshasn't used one sincenever had one made for him, will be seeing them soon anxiety: the patient reports worsened anxiety because of thiswill start on appropriate medication DAISY ANTHONY [address] [place], [address], [facility] 09/27/2021 11:49:00 3 text/html hospital fu patient was in the hospital following new onset swelling, tightness and pain status-post TKR left side on 04/05/22the patient presented for r/o DVTUS revealed posterior hematomabruising around the incision site but other well healing scar tissuecontacted on-call PA at [facility] [facility] who recommended against doing an aspiration of the fluid collection around his knee since his markers were wnlthe patient states he had been doing aggressive PT which may have caused the swelling and discomfortreported to having his quadriceps and hamstrings feeling tight which could be strain from overworking themwas d/c with fu appt with ortho (no note in the system if he has actually seen them or not)based on what [facility] says or is going to do for the patient, we may decide on repeat US in a month or so to make sure complete resolution of the fluid and hematoma the patient was found to have otherwise the rest of his care should be followed by his surgeon TODAY:patient saw the oncall PAstarted on two separate abxwill be seeing PT on mondaycan use a msk if he needsmonitor healing and inflammation DAISY ANTHONY [address] [place], [phone], [facility] 05/18/2022 15:40:16 3 text/html 3 week f/u the patient reports that he was doing wellno fever, no chills, no sob, no chest pain the patient completed the PT; all 12 sessions went wellthe patient is doing really well with mobility his joint is looking great, no longer has an infectionsome mild swelling still but improved from when I last saw him the patient does have a f/u with surgery for a re-evalthen will plan his surgery on the right knee HTN stable at home DAISY ANTHONY [address] [place], [phone], [facility] 06/08/2022 11:33:46 3 text/html Annual WellnessReported bypatient.Diet and Nutrition:healthy diet Fracture Risk:no history of fractures; no recent explained fracture; no sudden unexplained fractures; no previous musculoskeletal injuries Physical Activity:exercises on a regular basis; recent increase in physical activity; good physical condition Additional Lifestyle Factors:no tobacco use; no alcohol intake; stopped drinking alcohol Depression Risk:never feels sad, empty, or tearful; no loss of interest in activities; no significant changes in weight; no sleep disturbances or insomnia; no agitation; no loss of energy; no feelings of worthlessness or guilt; no thoughts of suicide; no history of depression; no history of mood disorders Hearing:no loss of hearing Vision:no vision problems Avelino Richardson DO [address] [place] [address], [phone], [facility] 06/21/2022 14:43:39 4 text/html Annual WellnessReported bypatient.Diet and Nutrition:healthy diet Fracture Risk:no history of fractures; no recent explained fracture; no sudden unexplained fractures; no previous musculoskeletal injuries Physical Activity:exercises on a regular basis; recent increase in physical activity; good physical condition Additional Lifestyle Factors:no tobacco use; no alcohol intake; stopped drinking alcohol Depression Risk:never feels sad, empty, or tearful; no loss of interest in activities; no significant changes in weight; no sleep disturbances or insomnia; no agitation; no loss of energy; no feelings of worthlessness or guilt; no thoughts of suicide; no history of depression; no history of mood disorders Hearing:no loss of hearing Vision:no vision problems Avelino Richardson DO [address] [place] [address], [phone], [facility] 08/16/2023 12:25:54
--- OUTSIDE RECORDS SUMMARY | 2024-08-06 07:40 | XMS_ITS ---
Author Name [facility] Organization Unknown History of Medication Use Medication Directions Dispensed Refills Start Date End Date Stat us oxybutynin chloride 5 mg tablet Take 1 tablet (5 mg total) by mouth 3 (three) times a day as needed. Please begin to take only after Urolift procedure 11/23/2021 01/12/2022 completed cephalexin 500 mg capsule Take 1 capsule (500 mg total) by mouth 3 (three) times a day for 3 days. Please begin to take the day before Urolift procedure 11/23/2021 11/27/2021 completed nitrofurantoin monohydrate/macrocry stals 100 mg capsule Take 1 capsule (100 mg total) by mouth 2 (two) times a day for 7 days. 11/08/2021 11/16/2021 completed Problems Problem Status Onset Date Problem Type Date of Resoluti on Source Benign prostatic hyperplasia with outflow obstruction active 2024-05-31 ProblemAct [facility] Incomplete emptying of urinary bladder active 2024-05-28 ProblemAct [facility] Encounters Encounter Type Encounter Reason Primary Diagnosis Location Date Ambulatory [facility] 06/18 Ambulatory [facility] 05/18 Ambulatory [facility] 05/18 [facility]ulatory [facility] 05/18 Ambulatory [facility] 03/21 Ambulatory [facility] 01/19 Care Team Organization Name Specialty Phone Email Start Date End Da te [facility] 04/24/2024
--- OUTSIDE RECORDS SUMMARY | 2024-08-06 07:40 | XMS_ITS | Clinical Summary ---
Author Organization [facility] Address [address] [place] [address] Care Team Providers Care Senior Clinical Study Manager Name Role Phone Avelino Moreno DO Primary Care Provider [phone] Surgical History Surgery Date Site/Laterality Comments TONSILLECTOMY PROCEDURE:TONSILLECTOMY APPENDECTOMY PROCEDURE:APPENDECTOMY Medical History Medical History Date Comments Hypertension DX:Hypertension Heart disease DX:Heart disease Arthritis DX:Arthritis Frequent urination DX:Frequent u rination Frequent urination at night DX:F requent urination at night Urinary urgency DX:Urinary urgen cy Urinary retention DX:Urinary ret ention Weak urine stream DX:Weak urine stream Social History Tobacco Use Types Packs/Day Years Used Date Smoking Tobacco: Never Assessed Sex and Gender Information Value Date Recorded Sex Assigned at Not on file Legal Sex Male 11:12 PM EST Gender Identity Not on file Sexual Orientation Not on file Obstetrics History Last Filed Vital Signs Vital Sign Reading Time Taken Comments Blood Pressure 140/79 01/12/2022 10:13 AM EDT Pulse 80 01/12/2022 10:13 AM EDT Temperature - - Respiratory Rate - - Oxygen Saturation - - Inhaled Oxygen Concentration - - Weight - - Height - - Body Mass Index - - Plan of Treatment Health Maintenance Due Date Last Done Comments DTaP,Tdap,and Td Vaccines (1 - Tdap) 11/01/1970 Pneumococcal Vaccine: 50+ Ye ars (1 of 1 - PCV) 11/01/2001 Zoster Vaccines (1 of 2) 11/01/2001 Abdominal Aortic Aneurysm (A AA) Screen 02/26/2022 Cholesterol Screening (Lipid Panel) 02/26/2022 Colorectal Cancer Screening: Colonoscopy 02/26/2022 Depression Screening 02/26/2022 Falls Risk Assessment 02/26/2022 Hepatitis C Screening 02/26/2022 Social Influencers of Health Screening 02/26/2022 COVID-19 Vaccine ( - 2023-2 5 season) 2023 Influenza Vaccine (Season Ended) 2024 RSV Immunization Adult Patie nts (1 - 1-dose 75+ series) 11/01/2026 HIB Vaccines Aged Out No longer eligi ble based on patient's age to complete this topic HPV Vaccines Aged Out No longer eligi ble based on patient's age to complete this topic Hepatitis A Vaccines Aged Out No long er eligible based on patient's age to complete this topic Hepatitis B Vaccines Aged Out No long er eligible based on patient's age to complete this topic IPV Vaccines Aged Out No longer eligi ble based on patient's age to complete this topic MMR Vaccines Aged Out No longer eligi ble based on patient's age to complete this topic Meningococcal ACWY Vaccine Aged Out N o longer eligible based on patient's age to complete this topic Meningococcal B Vaccine Aged Out No l onger eligible based on patient's age to complete this topic RSV Immunization Patients Un edyta 20 months Aged Out No longer eligible b ased on patient's age to complete this topic Varicella Vaccines Aged Out No longer eligible based on patient's age to complete this topic Care Teams Senior Clinical Study Manager Relationship Specialty Start Date End Date Avelino Moreno DO [address] [facility] [address] [place], [place] PCP - General Internal Medicine 08/17/21
[2024-08-06 13:18] LABS: MANUAL DIFF FLAG NO
[2024-08-06 13:27] LABS: Basophils Absolute Auto 0.1 X10*3/uL (0.0-0.2); Basophils Percent Auto 1.4 % (0-2); Eosinophils Absolute Auto 0.3 X10*3/uL (0.0-0.4); Eosinophils Percent Auto 5.5 % (0-4); Hematocrit 42.8 % (42.0-52.0); Hemoglobin 15.3 g/dl (14.0-18.0); Imm Gran Abs Auto 0.01 X10*3/uL (0.00-0.03); Imm Gran Pct Auto 0.2 % (0.0-0.4); Lymphocytes Absolute Auto 0.7 X10*3/uL (1.2-4.9); Lymphocytes Percent Auto 11.7 % (20-40); Mean Corpuscular HGB Conc 35.7 g/dl (31.0-36.0); Mean Corpuscular Volume 89.5 fL (80.0-98.0); Mean Platelet Volume 10.3 fL (9.4-12.4); Monocytes Absolute Auto 0.9 X10*3/uL (0.1-1.2); Monocytes Percent Auto 16.5 % (2-11); Neutrophils Absolute Auto 3.7 x10*3/uL (2.0-8.3); Neutrophils Percent Auto 64.7 % (45-73); Platelet Count 315 X10*3/uL (160-400); Red Blood Count 4.78 X10*6/uL (4.60-5.80); Red Cell Distribution Width 13.2 % (11.0-16.0); White Blood Count 5.6 X10*3/uL (4.8-10.8)
[2024-08-06 14:09] LABS: Prostate Specific Antigen 2.83 ng/mL (<0.05-4.0)
[2024-08-06 14:10] LABS: Alanine Aminotransferase 39 U/L (0-40); Alkaline Phosphatase 68 U/L (39-117); Anion Gap 12 (12-20); Aspartate Amino Transferase 43 U/L (5-37); Bilirubin Total 0.7 mg/dL (0.0-1.0); Blood Urea Nitrogen 6 mg/dL (9-16); Calcium 9.2 mg/dL (8.4-10.2); Carbon Dioxide 27 mmol/L (22-29); Chloride 99 mmol/L (96-108); Cholesterol 136 mg/dL (<200); Estimated Glomerular Filt Rate > 60; Glucose Random 84 mg/dL (60-115); HDL Cholesterol 87 mg/dL (>40); LDL Cholesterol Calculated 38 mg/dL (<100); Potassium 3.9 mmol/L (3.3-5.1); Sodium 134 mmol/L (135-145); Triglycerides 55 mg/dL (<150); Vitamin D 25-OH Total 28.7 ng/mL (>30)
[2024-08-06 14:16] LABS: Vitamin B12 316 pg/mL (200-900)
== END 2024-08-06 07:36 | disposition home or self-care (01) ==
LOC: HO.MANLDS 07:35
PROVIDERS: Visit Provider Internal Medicine
DX: Z00.00 Encounter for general adult medical examination without abnormal findings (principal); Z12.5 Encounter for screening for malignant neoplasm of prostate; I21.4 Non-ST elevation (NSTEMI) myocardial infarction
CPT/HCPCS: 36415; 80053; 80061; 82306; 82607; 84153; 85025